=== PATIENT | female | born 1955 | race Caucasian/White ===

== ENCOUNTER 2018-10-24 04:31 | Observation (INO) | payer MEDICARE ==
[~2018-10-24] VITALS: Ht 154.9 cm; Wt 67.8 kg
[~2018-10-24 04:31] MED LIST: ACTOS15 MG PO; ACTOS30 MG; ACTOS30 MG PO; ADVAIR DISK1; AMLODIPINE5 MG PO; AMOXICILLIN/CL875 MG OR; AMOXICILLIN500 MG PO; ASPIRIN LOW DOS81 M1 PO; ASTELIN; AUGMENTIN875TAB PO; BABY ASPIRIN81 MG; BENADRYL25 MG PO; BUPROBAN150 MG PO; BUPROPION150 M1 PO; BUSPAR10 M1 PO; BUSPIRONE5 MG PO; CEPACOL SORE PO; CIPROFLOXACN500 MG PO; CLONAZEPAM0.5 MG; CO Q-10100 MG; CRESTOR10 MG; CRESTOR10 MG PO; CYCLOBENZAPR5 MG PO; CYMBALTA30 MG; DIOVAN HCT320 MG/25; DITROPAN OR; DITROPAN PO; FENOFIBRATE134 MG PO; JANUMET1 TA1; JANUMET1 TA1 PO; JANUVIA100 MG; JANUVIA50 MG PO; LACTULOS2; LANTUS; LANTUS SC; LANTUS100 MG/ML SC; LEVOTHROID25 MC1; LEVOTHYROXIN25 MC1 PO; LEVOTHYROXIN75 MCG PO; LISINOP/HCTZ1 TA2 PO; LISINOPRIL20 M1 OR; LISINOPRIL20 M1 PO; LISINOPRIL20 MG PO; LOPID600 MG PO; METFORMIN1000 MG PO; METFORMIN500 M1 PO; MIRALAX3350 NF PO; MIRTAZAPINE15 MG PO; NEURONTIN100 MG PO; NOVOLOG MIX SC; OXYCODONE/ACETA1 TA1 PO; PAROXETINE20 MG PO; PRAMIPEXOLE0.5 MG OR; PRAMIPEXOLE0.5 MG PO; PRAVASTATIN10 MG PO; PREVACID30 M1; PRILOSEC20 MG PO; PRILOSEC40 MG PO; PROAIR HFA IN; ROBITUSSIN AC10 ML PO; RYBIX ODT50 MG PO; SERTRALINE100 MG PO; SINGULAIR 10 MG10 MG PO; SINGULAIR10 MG PO; SUCRALFATE1 GM PO; TRAMADOL HCL50 MG; TRAMADOL HCL50 MG PO; TRAZODONE100 MG OR; TRAZODONE100 MG PO; TRAZODONE50 MG PO; TRICOR145 MG; TRICOR145 MG PO; ZITHROMAX250 MG PO; [UNRECOGNIZED DRUG - REMARK]
[2018-10-24 05:17] LABS: HEMATOCRIT 29.1 % (37.0-47.0); HEMOGLOBIN 9.2 g/dl (12.0-16.0); IMMATURE GRANULOCYTES 0.9 % (0.0-5.0); MEAN CELL VOLUME 82.2 fL CALC (80.0-100.0); MEAN CORPUSCULAR HGB CONC 31.6 g/L CALC (32.0-36.0); NEUT# 10.18 thou/uL (2.00-7.15); RED BLOOD COUNT 3.54 mill/uL (4.20-5.60); RED CELL DISTRI WIDTH 15.7 % (11.5-15.5)
[2018-10-24] MEDS ORDERED: NOVOLIN N100 UNIT/1 SC ×2 (05:19→05:20)
[2018-10-24] MEDS ORDERED: NOVOLIN R100 UNIT/M SC ×2 (05:22→05:23)
[2018-10-24 05:31] LABS: ALBUMIN 4.4 g/dL (3.2-5.0); ALKALINE PHOSPHATASE 85 u/l (38-126); AMYLASE 41 u/l (30-110); ANION GAP 18 (6-22 (CALC)); BILIRUBIN, TOTAL 0.4 mg/dL (0.0-1.4); BUN 25 mg/dL (8-23); BUN/CREATININE RATIO 32 (12-20 (CALC)); CARBON DIOXIDE 26 mmol/l (22-30); CHLORIDE 97 mmol/l (95-108); CREATININE 0.8 mg/dL (0.5-1.0); GFR > 60 ML/MIN (>=60 (CALC)); GFR FOR AFR.AMER. > 60 ML/MIN (>=60 (CALC)); LIPASE 120 u/l (23-300); POTASSIUM 4.5 mmol/l (3.5-5.1); SGOT/AST 15 u/l (9-36); SODIUM 136 mmol/l (137-146); TOTAL PROTEIN 7.8 g/dL (6.3-8.2)
[2018-10-24 05:43] LABS: MYOGLOBIN 85 ng/mL (0 - 62)
[2018-10-24 08:01] LABS: URINE BILIRUBIN - DIPSTICK NEGATIVE (NEGATIVE); URINE BLOOD DIPSTICK NEGATIVE (NEGATIVE); URINE COLOR YELLOW; URINE GLUCOSE - DIPSTICK 250 mg/dL (NEGATIVE); URINE KETONE NEGATIVE (NEGATIVE); URINE LEUK ESTERASE NEGATIVE (NEGATIVE); URINE NITRITE - DIPSTICK NEGATIVE (Negative); URINE PROTEIN - DIPSTICK NEGATIVE (NEG-TRACE); URINE UROBILINOGEN - DIPSTICK 0.2 E.U./dL (0.2)
[2018-10-24 09:44] VITALS: BP 128/79
[2018-10-24 11:32] VITALS: BP 126/72
[2018-10-24 14:50] VITALS: BP 131/74
[2018-10-24 19:26] VITALS: BP 135/78
[2018-10-25 00:38] VITALS: BP 137/78
[2018-10-25 04:47] VITALS: BP 119/78
[2018-10-25 07:33] VITALS: BP 142/79
[2018-10-25 11:15] VITALS: BP 154/69
[2018-10-25] MEDS ORDERED: ZYRTEC10 MG PO (12:13)
[2018-10-25] MEDS ORDERED: FLONASE AL50 MCG/ACT (12:13)
[2018-10-25] MEDS ORDERED: AMOX/K CLAV875 M1 PO (12:13)
== END 2018-10-25 13:55 | disposition home or self-care (01) ==
LOC: ED 04:31 → ED-I 08:00 → ED 08:08 → MS2 08:09
PROVIDERS: Emergency Medicine; ADMIT Internal Medicine; ATTEND Internal Medicine
DX: R07.2 Precordial pain (principal); J32.9 Chronic sinusitis, unspecified; I10 Essential (primary) hypertension; E11.9 Type 2 diabetes mellitus without complications; G71.00 Muscular dystrophy, unspecified; E78.00 Pure hypercholesterolemia, unspecified; Z79.4 Long term (current) use of insulin
CPT/HCPCS: Q9967

== ENCOUNTER 2021-04-23 10:52 | Observation (INO) | payer MEDICARE, OTHER ==
[2021-04-23] VITALS (15 sets, daily range): BP systolic 126–185; BP diastolic 66–89
[~2021-04-23] VITALS: Ht 154.9 cm; Wt 62.8 kg
[~2021-04-23 10:52] MED LIST changes: +AMOX/K CLAV875 M1 PO; +FLONASE AL50 MCG/ACT; +METFORMIN HYD1000 MG PO; -METFORMIN500 M1 PO; +NOVOLIN N100 UNIT/1 SC; +NOVOLIN R100 UNIT/M SC; +ZYRTEC10 MG PO
--- NOTE | 2021-04-23 10:56 | NUR ---
PT AMBULATED TO ED ROOM 4 USING CANE FOR TRIAGE.
--- NOTE | 2021-04-23 11:10 | NUR ---
PT TAKEN BY WHEELCHAIR TO ROOM 8 FOR CONTINUED TREATMENT AND EVALUATION.
--- NOTE | 2021-04-23 11:18 | NUR ---
PT REPORTS THAT SHE HAS NOT TAKEN ANY OF HER DAILY MEDICATIONS. PT'S BP ELEVATED, DR ROSADO AND RN AWARE.
[2021-04-23 11:48] LABS: GFR > 60 ML/MIN (>=60 (CALC)); GFR FOR AFR.AMER. > 60 ML/MIN (>=60 (CALC))
[2021-04-23] MEDS ORDERED: LOSARTAN POTAS100 MG PO (11:49)
[2021-04-23 11:50] LABS: URINE BILIRUBIN - DIPSTICK NEGATIVE (NEGATIVE); URINE BLOOD DIPSTICK NEGATIVE (NEGATIVE); URINE COLOR YELLOW; URINE GLUCOSE - DIPSTICK NEGATIVE (NEGATIVE); URINE KETONE NEGATIVE (NEGATIVE); URINE LEUK ESTERASE NEGATIVE (NEGATIVE); URINE PROTEIN - DIPSTICK 30 mg/dL (NEG-TRACE); URINE UROBILINOGEN - DIPSTICK 0.2 E.U./dL (0.2)
[2021-04-23] MEDS ORDERED: TOPROL XL25 MG PO (11:50)
[2021-04-23] MEDS ORDERED: PANTOPRAZOLE SO40 M1 PO (11:50)
[2021-04-23 11:51] LABS: HEMATOCRIT 37.3 % (37.0-47.0); HEMOGLOBIN 11.9 g/dl (12.0-16.0); IMMATURE GRANULOCYTES 0.3 % (0.0-5.0); MEAN CELL VOLUME 90.5 fL CALC (80.0-100.0); MEAN CORPUSCULAR HGB 28.9 pG CALC (26.0-32.0); MEAN CORPUSCULAR HGB CONC 31.9 g/dL CAL (32.0-36.0); NEUT# 23.74 thou/uL (2.00-7.15); RED BLOOD COUNT 4.12 mill/uL (4.20-5.60); RED CELL DISTRI WIDTH 13.1 % (11.5-15.5)
[2021-04-23] MEDS ORDERED: LOPID600 MG PO (11:51)
[2021-04-23 11:53] LABS: URINE NITRITE - DIPSTICK NEGATIVE (Negative)
[2021-04-23] MEDS ORDERED: LANTUS SOL100 UNIT/M SC (11:54)
[2021-04-23] MEDS ORDERED: HUMALOG100 UNIT/M SC (11:55)
[2021-04-23 11:59] LABS: ALBUMIN 4.9 g/dL (3.2-5.0); ALKALINE PHOSPHATASE 75 u/l (38-126); ANION GAP 18 (6-22 (CALC)); BILIRUBIN, TOTAL 0.3 mg/dL (0.0-1.4); BUN 23 mg/dL (8-23); BUN/CREATININE RATIO 25 (12-20 (CALC)); CARBON DIOXIDE 28 mmol/l (22-30); CHLORIDE 100 mmol/l (95-108); CREATININE 0.9 mg/dL (0.5-1.0); GFR > 60 ML/MIN (>=60 (CALC)); GFR FOR AFR.AMER. > 60 ML/MIN (>=60 (CALC)); SGOT/AST 38 u/l (9-36); SODIUM 142 mmol/l (137-146)
[2021-04-23 12:02] LABS: URINE EPITHELIAL CELLS FEW EPI/hpf (0-FEW)
[2021-04-23 12:20] LABS: POTASSIUM 3.8 mmol/l (3.5-5.1)
[2021-04-23] MEDS ORDERED: BUPROPION HCL150 M2 PO (16:45)
[2021-04-23] MEDS ORDERED: PRAMIPEXOLE D0.25 MG PO (16:45)
[2021-04-23] MEDS ORDERED: NITROSTAT0.4 MG SL (16:46)
[2021-04-23] MEDS ORDERED: CYMBALTA60 MG PO (16:47)
[2021-04-23] MEDS ORDERED: ZOFRAN4 MG/TAB PO (16:47)
[2021-04-23] MEDS ORDERED: CYMBALTA30 MG PO (16:47)
[2021-04-23] MEDS ORDERED: CLARINEX5 MG PO (16:48)
[2021-04-23] MEDS ORDERED: XYZAL ALLERGY 245 MG PO (16:48)
[2021-04-23] MEDS ORDERED: FLEXERIL5 M1 PO (16:48)
[2021-04-23] MEDS ORDERED: CYANOCOBAL1000 MCG/M IM (16:49)
[2021-04-23] MEDS ORDERED: HYDRALAZINE HYD25 MG PO (16:49)
--- NOTE | 2021-04-23 18:24 | NUR ---
RECEIVE REPORT FROM [facility] ER NURSE. PATIENT STABLE AT HTIS TIME. NO REFER PAIN. EDUCATED ABOUT MEDICATIONS, ADMISSION PROCCESS, POC AND NURSING INTERVENTIOS. PATIENT REFER UNDERSTAND.
--- NOTE | 2021-04-23 19:55 | NUR ---
PHYSICAL ASSESMENT COMPLETE. PT CURRENTLY C/O PAIN AND DISCOMFORT. SCHEDULED MEDICATIONS AND PRN MEDICATION ADMINISTERED, SEE E-MAR. PT DENIES ANY NEEDS AT THIS TIME. PLAN OF CARE REVIEWED, PT DENIES QUESTIONS, VERBALIZES UNDERSTANDING. ITEMS WITHIN REACH, BED LOCKED IN LOW POSITION W/ BEDRAILS UP X2. CALL SANCHEZ WITHIN REACH, AGREES TO CALL PRN.
[2021-04-24] VITALS: BP 139/67
--- NOTE | 2021-04-24 | NUR ---
PT LAYING IN BED WITH EYES CLOSED, APPEARS TO BE SLEEPING, APPEARS COMFORTABLE AND IN NO DISTRESS. RESPIRATIONS REGULAR AND UNLABORED. ITEMS REMAIN WITHIN REACH, CALL SANCHEZ REMAINS WITHIN REACH. BED REMAINS LOCKED AND IN LOW POSITION WITH BEDRAILS UP X2. WILL CONTINUE TO MONITOR.
[2021-04-24 03:54] VITALS: BP 124/71
[2021-04-24 06:13] LABS: HEMATOCRIT 34.2 % (37.0-47.0); HEMOGLOBIN 10.8 g/dl (12.0-16.0); MEAN CELL VOLUME 91.9 fL CALC (80.0-100.0); MEAN CORPUSCULAR HGB CONC 31.6 g/dL CAL (32.0-36.0); RED BLOOD COUNT 3.72 mill/uL (4.20-5.60); RED CELL DISTRI WIDTH 13.2 % (11.5-15.5)
[2021-04-24 06:36] LABS: ALBUMIN 4.2 g/dL (3.2-5.0); ALKALINE PHOSPHATASE 56 u/l (38-126); AMYLASE 261 u/l (30-110); ANION GAP 17 (6-22 (CALC)); BILIRUBIN, TOTAL 0.3 mg/dL (0.0-1.4); BUN 16 mg/dL (8-23); BUN/CREATININE RATIO 20 (12-20 (CALC)); CARBON DIOXIDE 28 mmol/l (22-30); CHLORIDE 99 mmol/l (95-108); CREATININE 0.8 mg/dL (0.5-1.0); GFR > 60 ML/MIN (>=60 (CALC)); GFR FOR AFR.AMER. > 60 ML/MIN (>=60 (CALC)); LIPASE 1127 u/l (23-300); POTASSIUM 4.3 mmol/l (3.5-5.1); SGOT/AST 33 u/l (9-36); SODIUM 139 mmol/l (137-146); TOTAL PROTEIN 7.2 g/dL (6.3-8.2)
[2021-04-24 06:45] LABS: MAGNESIUM 0.8 mg/dL (1.6-2.3)
--- NOTE | 2021-04-24 08:00 | NUR ---
ASSESSMENT AND VITALS ALLOWED AT THIS TIME. PT STATES NO PAIN IN ABD AREA. GLUCOSE CHECK: 142 NO COVERAGE NEEDED PER SLIDING SCALE. IV: 20 RAC FLUSHED WITH NO RESISTANCE. NS @150. TELE MONITOR IN PLACE. CONTINOUS MONITORING PER ED. FALL/SAFTEY PRECAUTIONS IN PLACE. CALL LIGHT WITHIN REACH.
[2021-04-24 08:12] VITALS: BP 135/63
[2021-04-24 10:58] VITALS: BP 121/61
--- NOTE | 2021-04-24 11:35 | NUR ---
dr low at bedside
--- NOTE | 2021-04-24 14:10 | NUR ---
PT STATES PAIN MEDICATION WORKED WELL. STATES NO OTHER NEEDS AT THIS TIME. FALL/SAFTEY PRECAUTIONS IN PLACE. CALL LIGHT WITHIN REACH.
[2021-04-24 16:04] VITALS: BP 128/59
--- NOTE | 2021-04-24 18:42 | NUR ---
PT RESTING IN ROOM AT THIS TIME. MORPHINE GIVEN. STATES PAIN IS MUCH BETTER. IVF INFUSING PER EMAR. FALL/SAFTEY PRECAUTIONS ARE IN PLACE. CALL LIGHT IS WITHIN REACH.
--- NOTE | 2021-04-24 20:20 | NUR ---
PT IN BED WATCHING TV; A&O X3. EVEN AND UNLABORED RESPIRATIONS; CLEAR LUNG SOUNDS UPON AUSCULTATION. TELEMETRY IN PLACE. NO DISTRESS NOTED. PT DENIES PAIN AT THE MOMENT. ACTIVE BOWEL SOUNDS X4 QUADRANTS. IV SITE HEALTHY AND PATENT. SKIN IS INTACT. SAFETY PRECAUTIONS IN PLACE. CALL LIGHT WITHIN REACH.
[2021-04-24 20:21] VITALS: BP 138/56
[2021-04-25 00:13] VITALS: BP 137/62
--- NOTE | 2021-04-25 01:25 | NUR ---
PT IN BED; NO DISTRESS NOTED. PT DENIES PAIN AT THE MOMENT. NEW IV FLUIDS AND IV ANTIBIOTIC HANGING. TELEMETRY AND SAFETY PRECAUTIONS IN PLACE. CALL LIGHT WITHIN REACH.
--- NOTE | 2021-04-25 04:50 | NUR ---
PT IN BED, NO DISTRESS NOTED. PT DENIES PAIN AT THE MOMENT. PT HELPED WITH BEDPAN. TELEMETRY AND SAFETY PRECAUTIONS IN PLACE. CALL LIGHT WITHIN REACH.
[2021-04-25 05:27] VITALS: BP 125/61
[2021-04-25 06:40] LABS: HEMATOCRIT 31.1 % (37.0-47.0); HEMOGLOBIN 9.8 g/dl (12.0-16.0); MEAN CELL VOLUME 91.5 fL CALC (80.0-100.0); MEAN CORPUSCULAR HGB 28.8 pG CALC (26.0-32.0); MEAN CORPUSCULAR HGB CONC 31.5 g/dL CAL (32.0-36.0); RED BLOOD COUNT 3.4 mill/uL (4.20-5.60); RED CELL DISTRI WIDTH 13.3 % (11.5-15.5)
[2021-04-25 06:55] LABS: ALBUMIN 3.7 g/dL (3.2-5.0); ALKALINE PHOSPHATASE 51 u/l (38-126); ANION GAP 13 (6-22 (CALC)); BUN 14 mg/dL (8-23); BUN/CREATININE RATIO 15 (12-20 (CALC)); CARBON DIOXIDE 25 mmol/l (22-30); CHLORIDE 102 mmol/l (95-108); CREATININE 0.9 mg/dL (0.5-1.0); GFR > 60 ML/MIN (>=60 (CALC)); GFR FOR AFR.AMER. > 60 ML/MIN (>=60 (CALC)); LIPASE 261 u/l (23-300); POTASSIUM 4.4 mmol/l (3.5-5.1); SGOT/AST 24 u/l (9-36); SODIUM 136 mmol/l (137-146); TOTAL PROTEIN 6.6 g/dL (6.3-8.2)
[2021-04-25 06:56] LABS: BILIRUBIN, TOTAL 0.6 mg/dL (0.0-1.4); MAGNESIUM 1.9 mg/dL (1.6-2.3)
[2021-04-25 08:48] VITALS: BP 136/58
--- NOTE | 2021-04-25 08:57 | NUR ---
ASSESSMENT AND VITALS ALLOWED AT THIS TIME. PT COMPLAINS OF LOWER EXTREMITY PAIN BUT DECLINES PAIN MEDICATION. GLUCOSE CHECK THIS MORNIN PT REFUSES INSULIN. TELE MONITOR IN PLACE, CONTINOUS MONITORING PER ED. FALL/SAFTEY PRECAUTIONS IN PLACE. CALL LIGHT WITHIN REACH 20 RAC NS INFUSING IVF PER EMAR WITH NO COMPLICATION.
[2021-04-25 10:38] VITALS: BP 128/62
[2021-04-25] MEDS ORDERED: AMOX/K CLAV875 M1 PO (12:59)
--- NOTE | 2021-04-25 14:57 | NUR ---
Discharge instructions given. Patient verbalizes understanding of same. Discharged in stable condition via Wheelchair to Home with [facility] staff. All belongings sent with pt. IV REMOVED CATHETER FULLY INTACT. TELE MONITOR REMOVED.
== END 2021-04-25 14:55 ==
LOC: ED 10:52 → ED-I 15:36 → ED 15:59 → MS2 16:00
PROVIDERS: Family Medicine; Nurse Practitioner; ADMIT Internal Medicine; ATTEND Internal Medicine
DX: K85.90 Acute pancreatitis without necrosis or infection, unspecified (principal); K86.1 Other chronic pancreatitis; E83.42 Hypomagnesemia; I10 Essential (primary) hypertension; E11.9 Type 2 diabetes mellitus without complications; J45.909 Unspecified asthma, uncomplicated; G71.00 Muscular dystrophy, unspecified; E78.00 Pure hypercholesterolemia, unspecified; F41.9 Anxiety disorder, unspecified; F32.A Depression, unspecified; Z79.84 Long term (current) use of oral hypoglycemic drugs; Z79.4 Long term (current) use of insulin; Z20.822 Contact with and (suspected) exposure to COVID-19
CPT/HCPCS: G0378; J3475; Q9967

== ENCOUNTER 2021-05-09 07:47 | Observation (INO) | payer MEDICARE, OTHER ==
[~2021-05-09] VITALS: Ht 154.9 cm; Wt 63.0 kg
[2021-05-09] VITALS (12 sets, daily range): BP systolic 123–178; BP diastolic 54–84
[~2021-05-09 07:47] MED LIST changes: +BUPROPION HCL150 M2 PO; +CLARINEX5 MG PO; +CYANOCOBAL1000 MCG/M IM; +CYMBALTA30 MG PO; +CYMBALTA60 MG PO; +FLEXERIL5 M1 PO; +HUMALOG100 UNIT/M SC; +HYDRALAZINE HYD25 MG PO; +LANTUS SOL100 UNIT/M SC; +LOSARTAN POTAS100 MG PO; +NITROSTAT0.4 MG SL; +PANTOPRAZOLE SO40 M1 PO; +PRAMIPEXOLE D0.25 MG PO; +TOPROL XL25 MG PO; +XYZAL ALLERGY 245 MG PO; +ZOFRAN4 MG/TAB PO
[2021-05-09 09:17] LABS: AMYLASE 531 u/l (30-110); ANION GAP 21 (6-22 (CALC)); BILIRUBIN, TOTAL 0.4 mg/dL (0.0-1.4); BUN 31 mg/dL (8-23); BUN/CREATININE RATIO 37 (12-20 (CALC)); CARBON DIOXIDE 25 mmol/l (22-30); CHLORIDE 96 mmol/l (95-108); CREATININE 0.8 mg/dL (0.5-1.0); GFR > 60 ML/MIN (>=60 (CALC)); GFR FOR AFR.AMER. > 60 ML/MIN (>=60 (CALC)); POTASSIUM 4.6 mmol/l (3.5-5.1); SGOT/AST 29 u/l (9-36); SODIUM 138 mmol/l (137-146)
[2021-05-09 09:19] LABS: ALBUMIN 4.6 g/dL (3.2-5.0); ALKALINE PHOSPHATASE 81 u/l (38-126); TOTAL PROTEIN 8.8 g/dL (6.3-8.2)
[2021-05-09 09:22] LABS: URINE BILIRUBIN - DIPSTICK NEGATIVE (NEGATIVE); URINE BLOOD DIPSTICK TRACE-INTACT (NEGATIVE); URINE COLOR YELLOW; URINE GLUCOSE - DIPSTICK 250 mg/dL (NEGATIVE); URINE KETONE NEGATIVE (NEGATIVE); URINE LEUK ESTERASE NEGATIVE (NEGATIVE); URINE PROTEIN - DIPSTICK 100 mg/dL (NEG-TRACE); URINE UROBILINOGEN - DIPSTICK 0.2 E.U./dL (0.2)
[2021-05-09 09:23] LABS: MYOGLOBIN 99 ng/mL (0 - 62)
[2021-05-09 09:24] LABS: URINE NITRITE - DIPSTICK NEGATIVE (Negative)
[2021-05-09 09:25] LABS: URINE EPITHELIAL CELLS MODERATE EPI/hpf (0-FEW); URINE MUCUS MODERATE hpf (NONE-FEW); URINE RBC 0-2 RBC/hpf (0-5)
[2021-05-09 09:26] LABS: LIPASE 2665 u/l (23-300)
[2021-05-09 09:31] LABS: HEMATOCRIT 34.5 % (37.0-47.0); HEMOGLOBIN 10.8 g/dl (12.0-16.0); IMMATURE GRANULOCYTES 0.4 % (0.0-5.0); MEAN CELL VOLUME 90.6 fL CALC (80.0-100.0); MEAN CORPUSCULAR HGB 28.3 pG CALC (26.0-32.0); MEAN CORPUSCULAR HGB CONC 31.3 g/dL CAL (32.0-36.0); NEUT# 15.76 thou/uL (2.00-7.15); RED BLOOD COUNT 3.81 mill/uL (4.20-5.60); RED CELL DISTRI WIDTH 13.2 % (11.5-15.5)
[2021-05-10 03:15] VITALS: BP 121/62
[2021-05-10 05:08] LABS: MEAN CELL VOLUME 91.4 fL CALC (80.0-100.0); MEAN CORPUSCULAR HGB 28.5 pG CALC (26.0-32.0); MEAN CORPUSCULAR HGB CONC 31.2 g/dL CAL (32.0-36.0); RED BLOOD COUNT 3.02 mill/uL (4.20-5.60); RED CELL DISTRI WIDTH 13.5 % (11.5-15.5)
[2021-05-10 05:10] LABS: HEMOGLOBIN 8.6 g/dl (12.0-16.0)
[2021-05-10 05:11] LABS: HEMATOCRIT 27.6 % (37.0-47.0)
[2021-05-10 05:35] LABS: ALKALINE PHOSPHATASE 54 u/l (38-126); AMYLASE 169 u/l (30-110); BUN 21 mg/dL (8-23); BUN/CREATININE RATIO 26 (12-20 (CALC)); CARBON DIOXIDE 22 mmol/l (22-30); CREATININE 0.8 mg/dL (0.5-1.0); GFR > 60 ML/MIN (>=60 (CALC)); GFR FOR AFR.AMER. > 60 ML/MIN (>=60 (CALC)); LIPASE 927 u/l (23-300); POTASSIUM 4.7 mmol/l (3.5-5.1); SGOT/AST 21 u/l (9-36); SODIUM 139 mmol/l (137-146)
[2021-05-10 05:50] LABS: ALBUMIN 3.6 g/dL (3.2-5.0); ANION GAP 14 (6-22 (CALC)); BILIRUBIN, TOTAL 0.2 mg/dL (0.0-1.4); CHLORIDE 108 mmol/l (95-108); TOTAL PROTEIN 6.4 g/dL (6.3-8.2)
[2021-05-10 07:42] VITALS: BP 135/51
[2021-05-10 13:28] VITALS: BP 141/73
[2021-05-10 18:25] VITALS: BP 142/62
[2021-05-10 19:20] VITALS: BP 142/62
[2021-05-11 02:49] VITALS: BP 121/51
[2021-05-11 05:05] LABS: HEMOGLOBIN 8.9 g/dl (12.0-16.0); MEAN CELL VOLUME 92.1 fL CALC (80.0-100.0); MEAN CORPUSCULAR HGB 28.3 pG CALC (26.0-32.0); MEAN CORPUSCULAR HGB CONC 30.7 g/dL CAL (32.0-36.0); RED BLOOD COUNT 3.15 mill/uL (4.20-5.60); RED CELL DISTRI WIDTH 13.6 % (11.5-15.5)
[2021-05-11 05:20] LABS: ALBUMIN 3.6 g/dL (3.2-5.0); ALKALINE PHOSPHATASE 51 u/l (38-126); ANION GAP 15 (6-22 (CALC)); BILIRUBIN, TOTAL 0.2 mg/dL (0.0-1.4); BUN 14 mg/dL (8-23); BUN/CREATININE RATIO 18 (12-20 (CALC)); CARBON DIOXIDE 21 mmol/l (22-30); CHLORIDE 111 mmol/l (95-108); CREATININE 0.8 mg/dL (0.5-1.0); GFR > 60 ML/MIN (>=60 (CALC)); GFR FOR AFR.AMER. > 60 ML/MIN (>=60 (CALC)); LIPASE 457 u/l (23-300); SGOT/AST 28 u/l (9-36); SODIUM 142 mmol/l (137-146); TOTAL PROTEIN 6.6 g/dL (6.3-8.2)
[2021-05-11 05:21] LABS: MAGNESIUM 1.7 mg/dL (1.6-2.3)
[2021-05-11 08:13] VITALS: BP 125/58
[2021-05-11 14:27] VITALS: BP 149/69
[2021-05-11 18:07] VITALS: BP 158/75
[2021-05-12 04:00] VITALS: BP 149/68
[2021-05-12 05:46] LABS: HEMATOCRIT 29.2 % (37.0-47.0); HEMOGLOBIN 9.1 g/dl (12.0-16.0); IMMATURE GRANULOCYTES 0.3 % (0.0-5.0); MEAN CELL VOLUME 91.8 fL CALC (80.0-100.0); MEAN CORPUSCULAR HGB 28.6 pG CALC (26.0-32.0); MEAN CORPUSCULAR HGB CONC 31.2 g/dL CAL (32.0-36.0); NEUT# 5.46 thou/uL (2.00-7.15); RED BLOOD COUNT 3.18 mill/uL (4.20-5.60); RED CELL DISTRI WIDTH 13.6 % (11.5-15.5)
[2021-05-12 06:01] LABS: ANION GAP 14 (6-22 (CALC)); BUN 16 mg/dL (8-23); BUN/CREATININE RATIO 17 (12-20 (CALC)); CARBON DIOXIDE 21 mmol/l (22-30); CHLORIDE 111 mmol/l (95-108); GFR 55 ML/MIN (>=60 (CALC)); GFR FOR AFR.AMER. > 60 ML/MIN (>=60 (CALC)); MAGNESIUM 1.3 mg/dL (1.6-2.3); SODIUM 141 mmol/l (137-146)
== END 2021-05-12 13:24 | disposition home or self-care (01) ==
LOC: ED 07:47 → ED-I 09:30 → ED 10:12 → MS2 10:13
PROVIDERS: Emergency Medicine; ADMIT Internal Medicine; ATTEND Internal Medicine
DX: K85.90 Acute pancreatitis without necrosis or infection, unspecified (principal); K86.1 Other chronic pancreatitis; K86.89 Other specified diseases of pancreas; I10 Essential (primary) hypertension; E11.649 Type 2 diabetes mellitus with hypoglycemia without coma; E83.42 Hypomagnesemia; J45.909 Unspecified asthma, uncomplicated; F41.9 Anxiety disorder, unspecified; F32.A Depression, unspecified; E78.00 Pure hypercholesterolemia, unspecified; G71.00 Muscular dystrophy, unspecified; Z79.84 Long term (current) use of oral hypoglycemic drugs; Z79.4 Long term (current) use of insulin; Z20.822 Contact with and (suspected) exposure to COVID-19
CPT/HCPCS: J3475; Q9967; S0164

== ENCOUNTER 2022-02-01 10:39 | Emergency (ER) | payer MEDICARE, OTHER ==
[2022-02-01] VITALS (16 sets, daily range): BP systolic 96–152; BP diastolic 60–76
[~2022-02-01] VITALS: Ht 154.9 cm; Wt 62.3 kg
[2022-02-01 11:43] LABS: HEMATOCRIT 30.3 % (37.0-47.0); HEMOGLOBIN 10.2 g/dl (12.0-16.0); IMMATURE GRANULOCYTES 0.5 % (0.0-5.0); MEAN CELL VOLUME 90.7 fL CALC (80.0-100.0); MEAN CORPUSCULAR HGB 30.5 pG CALC (26.0-32.0); MEAN CORPUSCULAR HGB CONC 33.7 g/dL CAL (32.0-36.0); NEUT# 7.29 thou/uL (2.00-7.15); RED BLOOD COUNT 3.34 mill/uL (4.20-5.60); RED CELL DISTRI WIDTH 13.8 % (11.5-15.5)
[2022-02-01 11:53] LABS: ALBUMIN 4.5 g/dL (3.2-5.0); ALKALINE PHOSPHATASE 84 u/l (38-126); ANION GAP 20 (6-22 (CALC)); BILIRUBIN, TOTAL 0.2 mg/dL (0.0-1.4); BUN 36 mg/dL (8-23); BUN/CREATININE RATIO 39 (12-20 (CALC)); CARBON DIOXIDE 23 mmol/l (22-30); CHLORIDE 100 mmol/l (95-108); CREATININE 0.9 mg/dL (0.5-1.0); GFR FOR AFR.AMER. > 60 ML/MIN (>=60 (CALC)); GFR OTHER RACES > 60 ML/MIN (>=60 (CALC)); SGOT/AST 40 u/l (9-36); SODIUM 139 mmol/l (137-146); TOTAL PROTEIN 7.9 g/dL (6.3-8.2)
[2022-02-01 11:58] LABS: POTASSIUM 3.9 mmol/l (3.5-5.1)
[2022-02-01 13:20] LABS: URINE BILIRUBIN - DIPSTICK NEGATIVE (NEGATIVE); URINE BLOOD DIPSTICK NEGATIVE (NEGATIVE); URINE COLOR YELLOW; URINE GLUCOSE - DIPSTICK NEGATIVE (NEGATIVE); URINE KETONE NEGATIVE (NEGATIVE); URINE LEUK ESTERASE NEGATIVE (NEGATIVE); URINE PROTEIN - DIPSTICK NEGATIVE (NEG-TRACE); URINE SPECIFIC GRAVITY 1.015; URINE UROBILINOGEN - DIPSTICK 0.2 E.U./dL (0.2)
[2022-02-01 13:23] LABS: URINE NITRITE - DIPSTICK NEGATIVE (Negative)
== END 2022-02-01 14:51 | disposition home or self-care (01) ==
LOC: ED 10:39
PROVIDERS: Family Medicine
DX: E11.649 Type 2 diabetes mellitus with hypoglycemia without coma (principal); I10 Essential (primary) hypertension; J45.909 Unspecified asthma, uncomplicated; E78.00 Pure hypercholesterolemia, unspecified; G71.00 Muscular dystrophy, unspecified; Z79.4 Long term (current) use of insulin; Z79.84 Long term (current) use of oral hypoglycemic drugs

== ENCOUNTER 2022-02-08 11:14 | Emergency (ER) | payer MEDICARE, OTHER ==
[~2022-02-08] VITALS: Ht 154.9 cm; Wt 63.0 kg
[2022-02-08] MEDS ORDERED: BENZONATATE200 MG PO (12:39)
[2022-02-08] MEDS ORDERED: TAM75CAP PO (12:39)
[2022-02-08 12:42] VITALS: BP 133/99
[2022-02-13] MEDS ORDERED: DOXY-CAPS100 MG PO (15:48)
[2022-02-13] MEDS ORDERED: PREDNISONE50 MG PO (15:48)
[2022-02-13] MEDS ORDERED: PROVENTIL HFA IN (15:49)
== END 2022-02-08 12:50 | disposition home or self-care (01) ==
LOC: ED 11:14
DX: J10.1 Influenza due to other identified influenza virus with other respiratory manifestations (principal); I10 Essential (primary) hypertension; E11.9 Type 2 diabetes mellitus without complications; J45.909 Unspecified asthma, uncomplicated; E78.00 Pure hypercholesterolemia, unspecified; G71.00 Muscular dystrophy, unspecified; Z79.4 Long term (current) use of insulin; Z79.84 Long term (current) use of oral hypoglycemic drugs; Z20.822 Contact with and (suspected) exposure to COVID-19

== ENCOUNTER 2022-04-10 16:48 | Emergency (ER) | payer MEDICARE, OTHER ==
[~2022-04-10] VITALS: Ht 154.9 cm; Wt 62.0 kg
[~2022-04-10 16:48] MED LIST changes: +BENZONATATE200 MG PO; +DOXY-CAPS100 MG PO; +PREDNISONE50 MG PO; +PROVENTIL HFA IN; +TAM75CAP PO
[2022-04-10 17:52] LABS: HEMATOCRIT 39.2 % (37.0-47.0); HEMOGLOBIN 12.3 g/dl (12.0-16.0); MEAN CELL VOLUME 89.3 fL CALC (80.0-100.0); MEAN CORPUSCULAR HGB CONC 31.4 g/dL CAL (32.0-36.0); RED BLOOD COUNT 4.39 mill/uL (4.20-5.60); RED CELL DISTRI WIDTH 13.3 % (11.5-15.5)
[2022-04-10 18:01] VITALS: BP 150/98
[2022-04-10 18:02] LABS: ANION GAP 18 (6-22 (CALC)); BUN 33 mg/dL (8-23); BUN/CREATININE RATIO 38 (12-20 (CALC)); CARBON DIOXIDE 25 mmol/l (22-30); CHLORIDE 100 mmol/l (95-108); CREATININE 0.9 mg/dL (0.5-1.0); GFR FOR AFR.AMER. > 60 ML/MIN (>=60 (CALC)); GFR OTHER RACES > 60 ML/MIN (>=60 (CALC)); POTASSIUM 4.7 mmol/l (3.5-5.1); SODIUM 138 mmol/l (137-146)
[2022-04-10 18:16] VITALS: BP 165/99
[2022-04-10 18:30] VITALS: BP 157/77
[2022-04-10 18:45] VITALS: BP 164/81
[2022-04-10 19:39] VITALS: BP 164/81
== END 2022-04-10 19:51 | disposition home or self-care (01) ==
LOC: ED 16:48
PROVIDERS: Emergency Medicine
DX: J06.9 Acute upper respiratory infection, unspecified (principal); E86.0 Dehydration; I10 Essential (primary) hypertension; E11.9 Type 2 diabetes mellitus without complications; J45.909 Unspecified asthma, uncomplicated; E78.00 Pure hypercholesterolemia, unspecified; G71.00 Muscular dystrophy, unspecified; Z79.84 Long term (current) use of oral hypoglycemic drugs; Z79.4 Long term (current) use of insulin; Z20.822 Contact with and (suspected) exposure to COVID-19

== ENCOUNTER 2023-03-21 18:19 | Emergency (ER) | payer MEDICARE, OTHER ==
[~2023-03-21] VITALS: Ht 154.9 cm; Wt 61.2 kg
[2023-03-21] VITALS (16 sets, daily range): BP systolic 173–235; BP diastolic 71–210
[2023-03-21 19:13] LABS: BASO% 0.5 % (0-3); EOS% 1.5 % (0-8); HEMATOCRIT 35.4 % (37.0-47.0); HEMOGLOBIN 11.8 g/dl (12.0-16.0); IMMATURE GRANULOCYTES 0.1 % (0.0-5.0); LYMPH% 23.8 % (15-41); MEAN CELL VOLUME 89.4 fL CALC (80.0-100.0); MEAN CORPUSCULAR HGB 29.8 pG CALC (26.0-32.0); MEAN CORPUSCULAR HGB CONC 33.3 g/dL CAL (32.0-36.0); MONO% 7.2 % (2-13); NEUT# 5.71 thou/uL (2.00-7.15); NEUT% 66.9 % (42-76); RED BLOOD COUNT 3.96 mill/uL (4.20-5.60); RED CELL DISTRI WIDTH 14.5 % (11.5-15.5)
[2023-03-21 19:24] LABS: ALBUMIN 3.9 g/dL (3.2-5.0); BILIRUBIN, TOTAL 0.2 mg/dL (0.02-1.3); BUN 32 mg/dL (8-23); BUN/CREATININE RATIO 41 (12-20 (CALC)); CARBON DIOXIDE 23 mmol/l (22-30); CHLORIDE 98 mmol/l (95-108); CREATININE 0.8 mg/dL (0.5-1.0); GFR FOR AFR.AMER. > 60 ML/MIN (>=60 (CALC)); GFR OTHER RACES > 60 ML/MIN (>=60 (CALC)); SGOT/AST 35 u/l (9-36); TOTAL PROTEIN 7.1 g/dL (6.3-8.2)
[2023-03-21 19:41] LABS: ALKALINE PHOSPHATASE 108 u/l (38-126); ANION GAP 14 (6-22 (CALC)); POTASSIUM 3.2 mmol/l (3.5-5.1); SODIUM 132 mmol/l (137-146)
[2023-03-21 21:22] LABS: URINE BILIRUBIN - DIPSTICK Negative (NEGATIVE); URINE BLOOD DIPSTICK Small (NEGATIVE); URINE GLUCOSE - DIPSTICK >=1000 mg/dL (NEGATIVE); URINE KETONE Negative (NEGATIVE); URINE LEUK ESTERASE Negative (NEGATIVE); URINE NITRITE - DIPSTICK Negative (Negative); URINE PROTEIN - DIPSTICK 30 mg/dL (NEG-TRACE); URINE UROBILINOGEN - DIPSTICK 0.2 E.U./dL (0.2)
[2023-03-21 21:28] LABS: URINE COLOR Yellow
[2023-03-21 21:30] LABS: URINE RBC 0-2 RBC/hpf (0-5)
[2023-03-21] MEDS ORDERED: LISINOP/HCTZ1 TAB PO (21:47)
[2023-03-21] MEDS ORDERED: HUMULIN 70/30 SC (21:47)
== END 2023-03-21 22:44 | disposition home or self-care (01) ==
LOC: ED 18:19
PROVIDERS: Family Medicine
DX: S00.03XA Contusion of scalp, initial encounter (principal); E11.65 Type 2 diabetes mellitus with hyperglycemia; I10 Essential (primary) hypertension; J45.909 Unspecified asthma, uncomplicated; G71.00 Muscular dystrophy, unspecified; W18.39XA Other fall on same level, initial encounter; T38.3X6A Underdosing of insulin and oral hypoglycemic [antidiabetic] drugs, initial encounter; T46.5X6A Underdosing of other antihypertensive drugs, initial encounter; Z91.120 Patient's intentional underdosing of medication regimen due to financial hardship; Z96.41 Presence of insulin pump (external) (internal); Z79.84 Long term (current) use of oral hypoglycemic drugs; Z79.4 Long term (current) use of insulin; Z20.822 Contact with and (suspected) exposure to COVID-19

== ENCOUNTER 2023-09-23 15:02 | Emergency (ER) | payer MEDICARE, OTHER ==
[2023-09-23] VITALS (10 sets, daily range): BP systolic 109–127; BP diastolic 59–82
[~2023-09-23] VITALS: Ht 154.9 cm; Wt 54.9 kg
[~2023-09-23 15:02] MED LIST changes: +HUMULIN 70/30 SC; +LISINOP/HCTZ1 TAB PO
[2023-09-23] MEDS ORDERED: Heparin SODIUM (Porcine) 500 ML IV ONE (15:10)
[2023-09-23] MEDS ORDERED: NITROGLYCERIN IN D5W 250 ML IV ONE (15:10)
[2023-09-23] MEDS ORDERED: ASPIRIN 81 MG/TAB PO ONE ×2 (15:10→16:14)
[2023-09-23] MEDS ORDERED: Heparin SODIUM (Porcine) 5,000 UNITS/ML SDV IV ONE (15:10)
[2023-09-23] MEDS ORDERED: SODIUM CHLORIDE 0.9% 500 ML IV ONE (15:10)
[2023-09-23] MEDS ORDERED: NITROGLYCERIN 0.4 MG/TAB SL ONE (15:15)
[2023-09-23 15:22] LABS: BASO% 0.3 % (0-3); EOS% 1.6 % (0-8); HEMATOCRIT 33.7 % (37.0-47.0); HEMOGLOBIN 11.1 g/dl (12.0-16.0); IMMATURE GRANULOCYTES 0.2 % (0.0-5.0); LYMPH% 26.2 % (15-41); MEAN CELL VOLUME 93.9 fL CALC (80.0-100.0); MEAN CORPUSCULAR HGB 30.9 pG CALC (26.0-32.0); MEAN CORPUSCULAR HGB CONC 32.9 g/dL CAL (32.0-36.0); MONO% 9.6 % (2-13); NEUT# 7.59 thou/uL (2.00-7.15); NEUT% 62.1 % (42-76); RED BLOOD COUNT 3.59 mill/uL (4.20-5.60); RED CELL DISTRI WIDTH 12.3 % (11.5-15.5)
[2023-09-23 15:30] LABS: ALBUMIN 4.3 g/dL (3.2-5.0); CREATININE 1.3 mg/dL (0.5-1.0); POTASSIUM 4.7 mmol/l (3.5-5.1); TOTAL PROTEIN 7.9 g/dL (6.3-8.2)
[2023-09-23 15:37] LABS: BILIRUBIN, TOTAL 0.4 mg/dL (0.02-1.3)
[2023-09-23] MEDS ORDERED: NITROGLYCERIN IN D5W 25 MG/250 ML BTL IV ONE (16:14)
== END 2023-09-23 16:13 ==
LOC: ED 15:02
PROVIDERS: Nurse Practitioner
DX: I22.9 Subsequent ST elevation (STEMI) myocardial infarction of unspecified site (principal); I21.3 ST elevation (STEMI) myocardial infarction of unspecified site; I10 Essential (primary) hypertension; E11.9 Type 2 diabetes mellitus without complications; J45.909 Unspecified asthma, uncomplicated; E78.00 Pure hypercholesterolemia, unspecified; G71.00 Muscular dystrophy, unspecified; Z79.4 Long term (current) use of insulin; Z95.5 Presence of coronary angioplasty implant and graft; Z79.84 Long term (current) use of oral hypoglycemic drugs
CPT/HCPCS: J1644

== ENCOUNTER 2024-01-22 10:14 | Emergency (ER) | payer MEDICARE, OTHER ==
[2024-01-22] VITALS (9 sets, daily range): BP systolic 103–125; BP diastolic 57–71
[~2024-01-22] VITALS: Ht 154.9 cm; Wt 43.0 kg
[2024-01-22] MEDS ORDERED: DOXYCYCL HYC100 M4 PO (11:56)
== END 2024-01-22 12:24 | disposition home or self-care (01) ==
LOC: ED 10:14
DX: J06.9 Acute upper respiratory infection, unspecified (principal); E11.9 Type 2 diabetes mellitus without complications; I10 Essential (primary) hypertension; J45.909 Unspecified asthma, uncomplicated; E78.00 Pure hypercholesterolemia, unspecified; G71.00 Muscular dystrophy, unspecified; Z95.5 Presence of coronary angioplasty implant and graft; Z79.84 Long term (current) use of oral hypoglycemic drugs; Z79.4 Long term (current) use of insulin

== ENCOUNTER 2024-02-02 12:12 | Observation (INO) | payer MEDICARE, OTHER ==
[~2024-02-02] VITALS: Ht 154.9 cm; Wt 47.7 kg
[~2024-02-02 12:12] MED LIST changes: +DOXYCYCL HYC100 M4 PO
[2024-02-02] MEDS ORDERED: DEXTROSE 250 ML IV PRN (14:25)
[2024-02-02] MEDS ORDERED: SODIUM CHLORIDE 0.9% 1,000 ML IV PRN (14:30)
[2024-02-02] MEDS ORDERED: LORazepam 0.5 MG/TAB PO PRN (14:55)
[2024-02-02] MEDS ORDERED: Polyethylene Glycol 3350 17 GM/PKT PO PRN (14:55)
[2024-02-02] MEDS ORDERED: ALUM & MAG HYDROX-SIMETHICONE 30 ML PO PRN (14:55)
[2024-02-02] MEDS ORDERED: ACETAMINOPHEN 325 MG/TAB PO PRN (14:55)
[2024-02-02 15:00] VITALS: BP 130/68
[2024-02-02 15:16] LABS: BASO% 0.2 % (0-3); EOS% 0.5 % (0-8); HEMATOCRIT 32.4 % (37.0-47.0); HEMOGLOBIN 10.4 g/dl (12.0-16.0); IMMATURE GRANULOCYTES 0.2 % (0.0-5.0); LYMPH% 16.5 % (15-41); MEAN CELL VOLUME 91.5 fL CALC (80.0-100.0); MEAN CORPUSCULAR HGB 29.4 pG CALC (26.0-32.0); MEAN CORPUSCULAR HGB CONC 32.1 g/dL CAL (32.0-36.0); MONO% 6.4 % (2-13); NEUT# 9.61 thou/uL (2.00-7.15); NEUT% 76.2 % (42-76); RED BLOOD COUNT 3.54 mill/uL (4.20-5.60); RED CELL DISTRI WIDTH 13.2 % (11.5-15.5)
[2024-02-02 15:27] LABS: ALBUMIN 4.2 g/dL (3.2-5.0); BILIRUBIN, TOTAL 0.5 mg/dL (0.02-1.3); CREATININE 0.8 mg/dL (0.5-1.0); POTASSIUM 3.2 mmol/l (3.5-5.1); TOTAL PROTEIN 7.6 g/dL (6.3-8.2)
[2024-02-02 15:58] LABS: TSH, 3RD GENERATION 0.14 uIU/mL (0.47 - 4.68)
[2024-02-02] MEDS ORDERED: SODIUM CHLORIDE 0.9% 10 ML SYR IV PRN (16:20)
[2024-02-02] MEDS ORDERED: INSULIN LISPRO 100 UNITS/ML ML SC SCH (17:00)
[2024-02-02] MEDS ORDERED: LEVOTHYROXIN112 MC1 PO (17:32)
[2024-02-02 18:50] VITALS: BP 144/70
[2024-02-02 19:20] VITALS: BP 144/70
[2024-02-02] MEDS ORDERED: ISOSORBIDE DINI30 MG PO (20:18)
[2024-02-02] MEDS ORDERED: LEXAPRO10 MG PO (20:19)
[2024-02-02] MEDS ORDERED: NORVASC10 M1 PO (20:20)
[2024-02-02] MEDS ORDERED: INSULIN GLARGINE 100 UNITS/ML SC SCH (21:00)
[2024-02-02] MEDS ORDERED: SODIUM CHLORIDE 0.9% 10 ML SYR IV SCH (22:00)
[2024-02-03] VITALS: BP 129/63
[2024-02-03 00:12] VITALS: BP 129/63
[2024-02-03 04:15] VITALS: BP 129/61
[2024-02-03 04:57] VITALS: BP 129/61
[2024-02-03 05:33] LABS: URINE BILIRUBIN - DIPSTICK Negative (NEGATIVE); URINE BLOOD DIPSTICK Negative (NEGATIVE); URINE GLUCOSE - DIPSTICK 500 mg/dL (NEGATIVE); URINE KETONE Negative (NEGATIVE); URINE LEUK ESTERASE Negative (NEGATIVE); URINE NITRITE - DIPSTICK Negative (Negative); URINE PROTEIN - DIPSTICK 30 mg/dL (NEG-TRACE); URINE SPECIFIC GRAVITY 1.015; URINE UROBILINOGEN - DIPSTICK 0.2 E.U./dL (0.2)
[2024-02-03 05:42] LABS: URINE COLOR Yellow
[2024-02-03 05:43] LABS: ALBUMIN 3.5 g/dL (3.2-5.0); BASO% 0.3 % (0-3); BILIRUBIN, TOTAL 0.5 mg/dL (0.02-1.3); CREATININE 0.6 mg/dL (0.5-1.0); HEMATOCRIT 32.7 % (37.0-47.0); IMMATURE GRANULOCYTES 0.2 % (0.0-5.0); LYMPH% 23.3 % (15-41); MEAN CELL VOLUME 90.1 fL CALC (80.0-100.0); MEAN CORPUSCULAR HGB 30.3 pG CALC (26.0-32.0); MEAN CORPUSCULAR HGB CONC 33.6 g/dL CAL (32.0-36.0); MONO% 7.4 % (2-13); NEUT# 8.96 thou/uL (2.00-7.15); NEUT% 67.8 % (42-76); POTASSIUM 2.9 mmol/l (3.5-5.1); RED BLOOD COUNT 3.63 mill/uL (4.20-5.60); RED CELL DISTRI WIDTH 13.1 % (11.5-15.5); TOTAL PROTEIN 6.4 g/dL (6.3-8.2)
[2024-02-03 05:49] LABS: URINE RBC 0-2 RBC/hpf (0-5)
[2024-02-03] MEDS ORDERED: LEVOTHYROXINE SODIUM 112 MCG/TAB PO SCH (06:00)
[2024-02-03] MEDS ORDERED: POTASSIUM CHLORIDE 20 MEQ/TAB PO SCH (08:30)
[2024-02-03] MEDS ORDERED: ISOSORBIDE DINITRATE 10 MG TAB PO SCH (09:00)
[2024-02-03] MEDS ORDERED: METOPROLOL SUCCINATE 25 MG/TAB-TOPROL XL PO SCH (09:00)
[2024-02-03] MEDS ORDERED: amLODIPine BESYLATE 5 MG/TAB PO SCH (09:00)
[2024-02-03] MEDS ORDERED: MAGNESIUM SULFATE HEPTAHYDRATE 100 ML IV SCH (09:00)
[2024-02-03 10:50] VITALS: BP 133/64
[2024-02-03] MEDS ORDERED: INFLUENZA VIRUS VACCINE FLUZONE HD 2024/25 0.5 ML INJ IM SCH (11:00)
[2024-02-03] MEDS ORDERED: FERROUS SULFAT325 MG PO (12:03)
[2024-02-03] MEDS ORDERED: PLAVIX75 MG PO (12:05)
[2024-02-03] MEDS ORDERED: TOPROL XL25 M1 PO (12:07)
[2024-02-03] MEDS ORDERED: ISOSORB MONO30 MG PO (12:08)
[2024-02-03] MEDS ORDERED: BRILINTA90 MG PO (12:10)
[2024-02-03] MEDS ORDERED: AMLODIPINE BESY10 MG PO (12:11)
[2024-02-03] MEDS ORDERED: ENTRESTO 24-261 TAB PO (12:14)
[2024-02-03] MEDS ORDERED: ATORVASTATIN CA40 MG PO (12:19)
[2024-02-03] MEDS ORDERED: MONTELUKAST SOD10 MG PO (12:23)
[2024-02-03] MEDS ORDERED: TRESIBA FL100 UNIT/M SC (12:33)
[2024-02-05] MEDS ORDERED: MACROBID100 M1 PO (09:32)
== END 2024-02-03 13:37 | disposition home or self-care (01) ==
LOC: MS2 12:12
PROVIDERS: Nurse Practitioner Family; ADMIT Internal Medicine; ATTEND Internal Medicine
DX: R53.1 Weakness (principal); E11.65 Type 2 diabetes mellitus with hyperglycemia; R63.4 Abnormal weight loss; I10 Essential (primary) hypertension; E03.9 Hypothyroidism, unspecified; K86.1 Other chronic pancreatitis; G71.00 Muscular dystrophy, unspecified; F41.9 Anxiety disorder, unspecified; F32.A Depression, unspecified; Z95.5 Presence of coronary angioplasty implant and graft; Z79.4 Long term (current) use of insulin
CPT/HCPCS: 90662; G0378; J1815; J3475

== ENCOUNTER 2024-03-14 09:00 | Emergency (ER) | payer MEDICARE, OTHER ==
[~2024-03-14] VITALS: Ht 154.9 cm; Wt 50.0 kg
[2024-03-14] VITALS (8 sets, daily range): BP systolic 116–140; BP diastolic 55–81
[~2024-03-14 09:00] MED LIST changes: +AMLODIPINE BESY10 MG PO; +ATORVASTATIN CA40 MG PO; +BRILINTA90 MG PO; +ENTRESTO 24-261 TAB PO; +FERROUS SULFAT325 MG PO; +ISOSORB MONO30 MG PO; +ISOSORBIDE DINI30 MG PO; +LEVOTHYROXIN112 MC1 PO; +LEXAPRO10 MG PO; +MACROBID100 M1 PO; +MONTELUKAST SOD10 MG PO; +NORVASC10 M1 PO; +PLAVIX75 MG PO; +TOPROL XL25 M1 PO; +TRESIBA FL100 UNIT/M SC
[2024-03-14] MEDS ORDERED: DEXTROSE 50% 50 ML/SYR IV ONE (09:25)
[2024-03-14] MEDS ORDERED: SODIUM CHLORIDE 0.9% 1,000 ML IV ONE (09:25)
[2024-03-14 10:05] LABS: BASO% 0.2 % (0-3); EOS% 0.2 % (0-8); HEMATOCRIT 29.8 % (37.0-47.0); HEMOGLOBIN 9.4 g/dl (12.0-16.0); IMMATURE GRANULOCYTES 0.3 % (0.0-5.0); LYMPH% 12.3 % (15-41); MEAN CELL VOLUME 92.3 fL CALC (80.0-100.0); MEAN CORPUSCULAR HGB 29.1 pG CALC (26.0-32.0); MEAN CORPUSCULAR HGB CONC 31.5 g/dL CAL (32.0-36.0); MONO% 6.5 % (2-13); NEUT# 7.89 thou/uL (2.00-7.15); NEUT% 80.5 % (42-76); RED BLOOD COUNT 3.23 mill/uL (4.20-5.60); RED CELL DISTRI WIDTH 14.6 % (11.5-15.5)
[2024-03-14 10:09] LABS: ALBUMIN 3.4 g/dL (3.2-5.0); BILIRUBIN, TOTAL 0.4 mg/dL (0.02-1.3); CREATININE 0.8 mg/dL (0.5-1.0); TOTAL PROTEIN 6.4 g/dL (6.3-8.2)
[2024-03-14 10:13] LABS: POTASSIUM 4.7 mmol/l (3.5-5.1)
[2024-03-14 10:41] LABS: TSH, 3RD GENERATION 0.14 uIU/mL (0.47 - 4.68)
[2024-03-14 11:42] LABS: URINE BILIRUBIN - DIPSTICK Negative (NEGATIVE); URINE BLOOD DIPSTICK Negative (NEGATIVE); URINE GLUCOSE - DIPSTICK 500 mg/dL (NEGATIVE); URINE KETONE Negative (NEGATIVE); URINE LEUK ESTERASE Negative (NEGATIVE); URINE NITRITE - DIPSTICK Negative (Negative); URINE PH 5.5 (4.5-8.0); URINE PROTEIN - DIPSTICK Negative (NEG-TRACE); URINE SPECIFIC GRAVITY 1.015; URINE UROBILINOGEN - DIPSTICK 0.2 E.U./dL (0.2)
[2024-03-14 11:46] LABS: URINE COLOR Yellow
== END 2024-03-14 12:46 | disposition home or self-care (01) ==
LOC: ED 09:00
PROVIDERS: Family Medicine
DX: E11.649 Type 2 diabetes mellitus with hypoglycemia without coma (principal); I10 Essential (primary) hypertension; I25.2 Old myocardial infarction; E03.9 Hypothyroidism, unspecified; Z95.5 Presence of coronary angioplasty implant and graft; Z20.822 Contact with and (suspected) exposure to COVID-19; Z79.4 Long term (current) use of insulin